=== PATIENT | male | born 1965 | race African-American/Black ===

== ENCOUNTER 2021-12-04 12:25 | Inpatient (IN) | payer OTHER ==
[2021-12-04] MEDS ORDERED: MAGNESIUM HYDROX 2400MG/30ML ORAL SUSPENSION 30 ML CUP PO PRN (12:58)
[2021-12-04] MEDS ORDERED: BISMUTH SUBSALICYLATE 262 MG/15 ML BTL PO PRN (12:58)
[2021-12-04] MEDS ORDERED: DICYCLOMINE HCL 10 MG CAPSULE PO PRN (12:58)
[2021-12-04] MEDS ORDERED: MAG HYDROX/AL HYDROX/SIMETH 30 ML UNIT-DOSE CUP PO PRN (12:58)
[2021-12-04] MEDS ORDERED: ONDANSETRON *ODT* 4 MG TABLET SL PRN (12:58)
[2021-12-04] MEDS ORDERED: ACETAMINOPHEN 325 MG TABLET (FP) PO PRN ×2 (12:58)
[2021-12-04] MEDS ORDERED: MENTHOL/PHENOL 1 EACH UD MM PRN (12:58)
[2021-12-04] MEDS ORDERED: MAGNESIUM CITRATE 300 ML BOTTLE PO PRN (12:58)
[2021-12-04] MEDS ORDERED: LOPERAMIDE HCL 2 MG CAPSULE PO PRN (12:58)
[2021-12-04] MEDS ORDERED: IBUPROFEN 400 MG TABLET (FP) PO PRN (12:58)
[2021-12-04] MEDS ORDERED: METHOCARBAMOL 500 MG TABLET PO PRN (12:58)
[2021-12-04] MEDS ORDERED: NICOTINE 10 MG CARTRIDGE (INHALER) IH PRN (12:58)
[2021-12-04] MEDS ORDERED: LORazepam 1 MG TABLET PO PRN (12:58)
[2021-12-04 13:42] VITALS: BMI 23.3
[2021-12-04] MEDS: NICOTINE 14 MG/24 HOURS TOPICAL PATCH TD SCH (18:30)
[2021-12-04] MEDS: hydrOXYzine PAMOATE 25 MG CAPSULE (FP) PO SCH ×3 (18:32→22:30)
[2021-12-04] MEDS: LORazepam 2 MG TABLET PO SCH ×2 (18:32→22:30)
[2021-12-04] MEDS: HYDROCORTISONE 1% TOPICAL CREAM 30 GM TUBE TP SCH (22:28)
[2021-12-04] MEDS: MELATONIN 5 MG TABLETS PO SCH (22:29)
[2021-12-04] MEDS: THIAMINE HCL 100 MG TABLET (FP) PO SCH (22:29)
[2021-12-04] MEDS: risperiDONE 1 MG TABLET PO SCH (22:29)
[2021-12-05] MEDS: hydrOXYzine PAMOATE 25 MG CAPSULE (FP) PO SCH ×6 (05:27→22:14)
[2021-12-05] MEDS: LORazepam 2 MG TABLET PO SCH ×4 (05:27→22:14)
[2021-12-05] MEDS: HYDROCORTISONE 1% TOPICAL CREAM 30 GM TUBE TP SCH ×2 (10:53→22:14)
[2021-12-05] MEDS: NICOTINE 14 MG/24 HOURS TOPICAL PATCH TD SCH (10:53)
[2021-12-05] MEDS: risperiDONE 1 MG TABLET PO SCH ×2 (10:54→22:15)
[2021-12-05] MEDS: PRENATAL VITAMINS W/ FOLIC ACID TABLET (FP) PO SCH (10:54)
[2021-12-05] MEDS: MELATONIN 5 MG TABLETS PO SCH (22:14)
[2021-12-05] MEDS: THIAMINE HCL 100 MG TABLET (FP) PO SCH (22:14)
[2021-12-06] MEDS: LORazepam 1 MG TABLET PO SCH ×4 (05:25→22:17)
[2021-12-06] MEDS: hydrOXYzine PAMOATE 25 MG CAPSULE (FP) PO SCH ×5 (05:27→22:18)
[2021-12-06] MEDS: NICOTINE 14 MG/24 HOURS TOPICAL PATCH TD SCH (10:48)
[2021-12-06] MEDS: risperiDONE 1 MG TABLET PO SCH ×2 (10:48→22:17)
[2021-12-06] MEDS: PRENATAL VITAMINS W/ FOLIC ACID TABLET (FP) PO SCH (10:48)
[2021-12-06] MEDS: HYDROCORTISONE 1% TOPICAL CREAM 30 GM TUBE TP SCH ×2 (10:48→22:18)
[2021-12-06] MEDS: THIAMINE HCL 100 MG TABLET (FP) PO SCH (22:17)
[2021-12-06] MEDS: MELATONIN 5 MG TABLETS PO SCH (22:18)
[2021-12-07] MEDS ORDERED: LORazepam 0.5 MG TABLET PO PRN
[2021-12-07 00:06] LABS: SARS-CoV-2 NAA Not Detected (Not Detected)
[2021-12-07] MEDS: LORazepam 0.5 MG TABLET PO SCH ×4 (06:08→22:29)
[2021-12-07] MEDS: hydrOXYzine PAMOATE 25 MG CAPSULE (FP) PO SCH ×5 (06:14→22:28)
[2021-12-07] MEDS: PRENATAL VITAMINS W/ FOLIC ACID TABLET (FP) PO SCH (10:34)
[2021-12-07] MEDS: HYDROCORTISONE 1% TOPICAL CREAM 30 GM TUBE TP SCH ×2 (10:34→22:32)
[2021-12-07] MEDS: risperiDONE 1 MG TABLET PO SCH ×2 (10:37→22:28)
[2021-12-07] MEDS: NICOTINE 14 MG/24 HOURS TOPICAL PATCH TD SCH (10:38)
[2021-12-07 14:38] LABS: BASO % 0.5 % (0-2.0); EOS % 4.7 % (0-4.5); HEMATOCRIT 31.1 % (35.4-49); HEMOGLOBIN 9.8 GM/dL (11.7-16.9); LYMPH % 37.6 % (8-40); MCH 24.1 pg (25.7-33.7); MCHC 31.4 g/dl (32.0-35.9); MEAN CELL VOLUME 76.6 fl (80-96); MEAN PLT VOLUME 9.3 fl (7.5-11.1); MONO % 9.9 % (3.8-10.2); NEUT % 47.3 % (42.8-82.8); PLATELET COUNT 296 10^3/uL (134-434); RBC 4.06 M/mm3 (4.00-5.60); RDW 16.8 % (11.9-15.9)
[2021-12-07 15:00] LABS: ALBUMIN 2.9 g/dl (3.4-5.0)
[2021-12-07 15:01] LABS: BLOOD UREA NITROGEN 13.5 mg/dL (7-18); CREATININE 0.6 mg/dL (0.55-1.3)
[2021-12-07 15:02] LABS: BILIRUBIN,TOTAL 0.2 mg/dL (0.2-1); CALCIUM 8.9 mg/dL (8.5-10.1); TOT PROT 6.6 g/dl (6.4-8.2)
[2021-12-07 22:28] VITALS: TEMP 97.5
[2021-12-07] MEDS: THIAMINE HCL 100 MG TABLET (FP) PO SCH (22:28)
[2021-12-07] MEDS: MELATONIN 5 MG TABLETS PO SCH (22:29)
[2021-12-08] MEDS ORDERED: LORazepam 0.5 MG TABLET PO ONE (05:00)
[2021-12-08] MEDS: hydrOXYzine PAMOATE 25 MG CAPSULE (FP) PO SCH (06:02)
[2021-12-08 07:09] VITALS: BP 120/71; PULSE 65
== END 2021-12-08 08:29 | disposition home or self-care (01) | DRG 775 ==
LOC: YASAS 12:25 → Y6N 14:22
PROVIDERS: ADMIT Allergy & Immunology; ATTEND Allergy & Immunology
PROC: HZ2ZZZZ Detoxification Services for Substance Abuse Treatment (ICD-10-PCS; principal; 2021-12-04)
DX: F10.230 Alcohol dependence with withdrawal, uncomplicated (principal); F12.10 Cannabis abuse, uncomplicated; F17.210 Nicotine dependence, cigarettes, uncomplicated; F20.9 Schizophrenia, unspecified; F31.9 Bipolar disorder, unspecified; D50.9 Iron deficiency anemia, unspecified; H54.62 Unqualified visual loss, left eye, normal vision right eye; I10 Essential (primary) hypertension; E11.9 Type 2 diabetes mellitus without complications; M19.90 Unspecified osteoarthritis, unspecified site; M54.50 Low back pain, unspecified; G89.29 Other chronic pain; Z86.11 Personal history of tuberculosis; Z86.19 Personal history of other infectious and parasitic diseases; Z88.8 Allergy status to other drugs, medicaments and biological substances; Z56.0 Unemployment, unspecified; Z59.01 Sheltered homelessness
CPT/HCPCS: 36415; 71045-TC-FY; 80053; 82962; 85025; 86780; 93005; 93010; C9803-CS; J2794; U0003; U0005

== ENCOUNTER 2022-01-06 11:11 | Inpatient (IN) | payer OTHER ==
[2022-01-06] MEDS ORDERED: ONDANSETRON *ODT* 4 MG TABLET SL PRN (13:04)
[2022-01-06] MEDS ORDERED: MAGNESIUM HYDROX 2400MG/30ML ORAL SUSPENSION 30 ML CUP PO PRN (13:04)
[2022-01-06] MEDS ORDERED: NICOTINE 10 MG CARTRIDGE (INHALER) IH PRN (13:04)
[2022-01-06] MEDS ORDERED: DICYCLOMINE HCL 10 MG CAPSULE PO PRN (13:04)
[2022-01-06] MEDS ORDERED: IBUPROFEN 400 MG TABLET (FP) PO PRN (13:04)
[2022-01-06] MEDS ORDERED: LORazepam 1 MG TABLET PO PRN (13:04)
[2022-01-06] MEDS ORDERED: MAGNESIUM CITRATE 300 ML BOTTLE PO PRN (13:04)
[2022-01-06] MEDS ORDERED: ACETAMINOPHEN 325 MG TABLET (FP) PO PRN ×2 (13:04)
[2022-01-06] MEDS ORDERED: LOPERAMIDE HCL 2 MG CAPSULE PO PRN (13:04)
[2022-01-06] MEDS ORDERED: BENZOCAINE/MENTHOL (CHLORASEPTIC ) LOZENGE MM PRN (13:04)
[2022-01-06] MEDS ORDERED: BISMUTH SUBSALICYLATE 262 MG/15 ML BTL PO PRN (13:04)
[2022-01-06] MEDS ORDERED: MAG HYDROX/AL HYDROX/SIMETH 30 ML UNIT-DOSE CUP PO PRN (13:04)
[2022-01-06] MEDS ORDERED: cloNIDine HCL 0.1 MG TABLET PO ONE (13:16)
[2022-01-06 13:52] VITALS: BMI 23.8
[2022-01-06] MEDS: hydrOXYzine PAMOATE 25 MG CAPSULE (FP) PO SCH ×3 (15:34→22:40)
[2022-01-06] MEDS: PRENATAL VITAMINS W/ FOLIC ACID TABLET (FP) PO SCH (15:36)
[2022-01-06] MEDS: THIAMINE HCL 100 MG TABLET (FP) PO SCH (22:42)
[2022-01-06] MEDS: LORazepam 2 MG TABLET PO SCH (22:42)
[2022-01-06] MEDS: MELATONIN 5 MG TABLETS PO SCH (22:42)
[2022-01-07] MEDS: LORazepam 2 MG TABLET PO SCH ×4 (06:06→22:28)
[2022-01-07] MEDS: hydrOXYzine PAMOATE 25 MG CAPSULE (FP) PO SCH ×5 (06:06→22:27)
[2022-01-07] MEDS: PRENATAL VITAMINS W/ FOLIC ACID TABLET (FP) PO SCH (10:30)
[2022-01-07 10:57] LABS: HEMATOCRIT 33.6 % (35.4-49); HEMOGLOBIN 10.4 GM/dL (11.7-16.9); MCH 23.2 pg (25.7-33.7); MEAN CELL VOLUME 74.7 fl (80-96); MEAN PLT VOLUME 9.5 fl (7.5-11.1); PLATELET COUNT 206 10^3/uL (134-434); RBC 4.49 M/mm3 (4.00-5.60)
[2022-01-07] MEDS: risperiDONE 0.5 MG TABLET PO SCH ×2 (11:45→22:27)
[2022-01-07 11:54] LABS: BLOOD UREA NITROGEN 14.5 mg/dL (7-18); CALCIUM 9.1 mg/dL (8.5-10.1)
[2022-01-07 11:58] LABS: CREATININE 0.8 mg/dL (0.55-1.3)
[2022-01-07 12:00] LABS: BILIRUBIN,TOTAL 0.6 mg/dL (0.2-1); TOT PROT 6.6 g/dl (6.4-8.2)
[2022-01-07] MEDS: MELATONIN 5 MG TABLETS PO SCH (22:27)
[2022-01-07] MEDS: THIAMINE HCL 100 MG TABLET (FP) PO SCH (22:27)
[2022-01-08] MEDS: LORazepam 1 MG TABLET PO SCH ×4 (05:35→22:20)
[2022-01-08] MEDS: hydrOXYzine PAMOATE 25 MG CAPSULE (FP) PO SCH ×5 (06:38→22:19)
[2022-01-08 10:09] LABS: SARS-CoV-2 NAA Not Detected (Not Detected)
[2022-01-08] MEDS: METHOCARBAMOL 500 MG TABLET PO PRN (10:47)
[2022-01-08] MEDS: PRENATAL VITAMINS W/ FOLIC ACID TABLET (FP) PO SCH (10:47)
[2022-01-08] MEDS: risperiDONE 0.5 MG TABLET PO SCH ×2 (10:48→22:20)
[2022-01-08] MEDS: THIAMINE HCL 100 MG TABLET (FP) PO SCH (22:19)
[2022-01-08] MEDS: MELATONIN 5 MG TABLETS PO SCH (22:19)
[2022-01-09] MEDS ORDERED: LORazepam 0.5 MG TABLET PO PRN
[2022-01-09] MEDS: LORazepam 0.5 MG TABLET PO SCH ×4 (05:32→22:30)
[2022-01-09] MEDS: hydrOXYzine PAMOATE 25 MG CAPSULE (FP) PO SCH ×5 (05:32→22:31)
[2022-01-09] MEDS: PRENATAL VITAMINS W/ FOLIC ACID TABLET (FP) PO SCH (10:20)
[2022-01-09] MEDS: METHOCARBAMOL 500 MG TABLET PO PRN (10:20)
[2022-01-09] MEDS: risperiDONE 0.5 MG TABLET PO SCH ×2 (10:20→22:31)
[2022-01-09 10:43] LABS: BASO % 0.4 % (0-2.0); EOS % 6.2 % (0-4.5); HEMATOCRIT 30.6 % (35.4-49); HEMOGLOBIN 9.7 GM/dL (11.7-16.9); LYMPH % 31.7 % (8-40); MCH 23.7 pg (25.7-33.7); MCHC 31.7 g/dl (32.0-35.9); MEAN CELL VOLUME 74.7 fl (80-96); MONO % 12.8 % (3.8-10.2); NEUT % 48.9 % (42.8-82.8); PLATELET COUNT 183 10^3/uL (134-434); RDW 18.9 % (11.9-15.9); WHITE BLOOD COUNT 4.7 K/mm3 (4.0-10.0)
[2022-01-09 11:02] LABS: CALCIUM 9.6 mg/dL (8.5-10.1)
[2022-01-09 11:03] LABS: ALBUMIN 3.1 g/dl (3.4-5.0); BLOOD UREA NITROGEN 12.2 mg/dL (7-18)
[2022-01-09 11:05] LABS: BILIRUBIN,TOTAL 0.2 mg/dL (0.2-1); TOT PROT 6.9 g/dl (6.4-8.2)
[2022-01-09 11:10] LABS: CREATININE 0.7 mg/dL (0.55-1.3)
[2022-01-09] MEDS: THIAMINE HCL 100 MG TABLET (FP) PO SCH (22:31)
[2022-01-09] MEDS: MELATONIN 5 MG TABLETS PO SCH (22:53)
[2022-01-10] MEDS ORDERED: LORazepam 0.5 MG TABLET PO ONE (05:00)
[2022-01-10] MEDS: hydrOXYzine PAMOATE 25 MG CAPSULE (FP) PO SCH ×2 (05:42→10:25)
[2022-01-10 09:30] VITALS: BP 119/81; PULSE 101; TEMP 96.8
[2022-01-10] MEDS: risperiDONE 0.5 MG TABLET PO SCH (10:25)
[2022-01-10] MEDS: PRENATAL VITAMINS W/ FOLIC ACID TABLET (FP) PO SCH (10:25)
== END 2022-01-10 09:56 | disposition other institution (70) | DRG 775 ==
LOC: YASAS 11:11 → Y6N 14:49
PROVIDERS: ADMIT Allergy & Immunology; ATTEND Allergy & Immunology
PROC: HZ2ZZZZ Detoxification Services for Substance Abuse Treatment (ICD-10-PCS; principal; 2022-01-06)
DX: F10.230 Alcohol dependence with withdrawal, uncomplicated (principal); F12.10 Cannabis abuse, uncomplicated; F17.210 Nicotine dependence, cigarettes, uncomplicated; F20.9 Schizophrenia, unspecified; F10.280 Alcohol dependence with alcohol-induced anxiety disorder; F10.282 Alcohol dependence with alcohol-induced sleep disorder; F19.24 Other psychoactive substance dependence with psychoactive substance-induced mood disorder; H54.61 Unqualified visual loss, right eye, normal vision left eye; I10 Essential (primary) hypertension; E11.9 Type 2 diabetes mellitus without complications; B18.2 Chronic viral hepatitis C; M54.50 Low back pain, unspecified; Z62.810 Personal history of physical and sexual abuse in childhood; Z91.410 Personal history of adult physical and sexual abuse; Z86.11 Personal history of tuberculosis; Z88.8 Allergy status to other drugs, medicaments and biological substances; Z59.00 Homelessness unspecified; Z56.0 Unemployment, unspecified
CPT/HCPCS: 36415; 71045-TC-FY; 80048; 80053; 82962; 85025; 85027; 86780; C9803-CS; J0735; Q0162; U0003; U0005